=== PATIENT | male | born 1960 | race Caucasian/White ===

== ENCOUNTER 2020-03-30 09:58 | Emergency (ER) | payer BC, OTHER ==
[~2020-03-30] VITALS: Ht 195.6 cm; Wt 93.0 kg
[2020-03-30 10:03] VITALS: BP 152/80
[2020-03-30] MEDS ORDERED: ACETAMINOPHEN EXTRA STRENGTH 500 MG TAB PO ONE (10:25)
[2020-03-30 11:35] VITALS: BP 148/78
== END 2020-03-30 11:35 | disposition home or self-care (01) ==
LOC: MED 09:58
DX: S40.011A Contusion of right shoulder, initial encounter (principal); I10 Essential (primary) hypertension; M06.80 Other specified rheumatoid arthritis, unspecified site; W18.39XA Other fall on same level, initial encounter; Y93.89 Activity, other specified; Y92.89 Other specified places as the place of occurrence of the external cause; Y99.8 Other external cause status
CPT/HCPCS: 73030; 99283; Q0092